=== PATIENT | female | born 1965 | race Two or more races ===

== ENCOUNTER 2025-07-21 10:51 | Outpatient (CLI) | payer OTHER | END 2025-07-21 10:53 | disposition home or self-care (01) | LOC: SONOGRAMA 10:51 | PROVIDERS: ATTEND Pathology Anatomic Pathology | DX: D34 Benign neoplasm of thyroid gland (principal); E07.89 Other specified disorders of thyroid; E04.1 Nontoxic single thyroid nodule ==